=== PATIENT | male | born 1955 | race Two or more races ===

== ENCOUNTER 2023-10-14 05:30 | Day surgery (SDC) | payer OTHER ==
[2023-10-14] MEDS ORDERED: DIPHENHYDRAMINE HCL 50 MG/ML VIAL 1ML IV ONE (12:15)
[2023-10-14] MEDS ORDERED: fentaNYL CITRATE 50 MCG/ML AMPUL IV PUSH ONE (12:15)
[2023-10-14] MEDS ORDERED: MIDAZOLAM HCL 2 MG/2 ML VIAL IV ONE (12:15)
== END 2023-10-14 13:10 | disposition home or self-care (01) ==
LOC: AMB-ENDOS 05:30 → CIR.AMB 13:15
PROVIDERS: ATTEND Surgery
DX: D12.0 Benign neoplasm of cecum (principal); K57.30 Diverticulosis of large intestine without perforation or abscess without bleeding; K63.5 Polyp of colon